=== PATIENT | female | born 1995 ===

== ENCOUNTER 2022-05-06 03:45 | Inpatient (IN) | payer BC ==
[2022-05-06] MEDS: Lactated Ringers 1,000 ML IV SCH ×3 (07:40→14:47)
[2022-05-06] MEDS ORDERED: Misoprostol 200 MCG Tab PO PRN (07:51)
[2022-05-06] MEDS ORDERED: Lidocaine 1% 50 ML MDV INJECT PRN (07:51)
[2022-05-06] MEDS ORDERED: Water For Irrigation,Sterile 1,000 ML Container IRR PRN (07:51)
[2022-05-06] MEDS ORDERED: Tranexamic Acid 1,000 MG in Sodium Chloride 0.9% 100 ML IV PRN (07:51)
[2022-05-06] MEDS ORDERED: Carboprost Tromethamine 250 MCG/1 ML Amp IM PRN (07:51)
[2022-05-06] MEDS ORDERED: Sodium Chloride 0.9% 10 ML Syringe FLUSH PRN (07:51)
[2022-05-06] MEDS ORDERED: Butorphanol 1 MG/ML SDV IVPUSH PRN (07:51)
[2022-05-06] MEDS ORDERED: Methylergonovine 0.2 MG/1 ML Amp IM PRN (07:51)
[2022-05-06] MEDS ORDERED: Sodium Chloride 0.9% 20 ML SDV IV PRN (07:51)
[2022-05-06] MEDS ORDERED: Sodium Chloride 0.9% 2.5 ML Syringe FLUSH PRN (07:51)
[2022-05-06] MEDS ORDERED: Oxytocin/0.9 % Sodium Chloride 30 UNIT/500 ML BAG IV SCH ×2 (08:00→10:45)
[2022-05-06] MEDS ORDERED: Ropivacaine/PF 400 MG/200 ML PCA ONE (08:28)
[2022-05-06] MEDS ORDERED: ePHEDrine 50 MG/ML SDV IVPUSH PRN (08:47)
[2022-05-06] MEDS ORDERED: Ropivacaine HCl/PF 400 MG in Premix Bag 1 BAG EPIDUR SCH (09:00)
[2022-05-06] MEDS ORDERED: Phenylephrine HCl In 0.9% NaCl 1 MG/10 ML Vial IVPUSH SCH (09:00)
[2022-05-06] MEDS ORDERED: Terbutaline 1 MG/ML SDV SUBCUT PRN (10:31)
[2022-05-06] MEDS ORDERED: Benzocaine/Menthol 20%-0.5% Spray 78 GM Cannister TOP PRN (18:17)
[2022-05-06] MEDS ORDERED: Aluminum Hydroxide/Magnesium Hydroxide/Simethicone XS Susp 30 ML Cup PO PRN (18:17)
[2022-05-06] MEDS ORDERED: Acetaminophen 500 MG Tab PO PRN (18:17)
[2022-05-06] MEDS ORDERED: Lanolin 100% Cream 7 GM Tube TOP PRN (18:17)
[2022-05-06] MEDS ORDERED: Ibuprofen 400 MG Tab PO PRN (18:17)
[2022-05-06] MEDS ORDERED: oxyCODONE 5 MG Tab PO PRN (18:17)
[2022-05-06] MEDS ORDERED: Bisacodyl 10 MG Supp RECTAL PRN (18:17)
[2022-05-06] MEDS: Ibuprofen 800 MG Tab PO PRN (20:42)
[2022-05-06] MEDS: Witch Hazel Medicated Pads 40/Jar TOP PRN (20:43)
[2022-05-07] MEDS: Acetaminophen 500 MG Tab PO PRN ×2 (08:06→16:06)
[2022-05-07] MEDS: Docusate Sodium 100 MG Cap PO PRN (08:06)
[2022-05-07] MEDS: Ibuprofen 800 MG Tab PO PRN (11:53)
[2022-05-08] MEDS: Acetaminophen 500 MG Tab PO PRN ×2 (02:18→09:15)
[2022-05-08] MEDS: Witch Hazel Medicated Pads 40/Jar TOP PRN (09:12)
[2022-05-08] MEDS: Docusate Sodium 100 MG Cap PO PRN (09:17)
== END 2022-05-08 12:03 | disposition home or self-care (01) | DRG 560 ==
LOC: MW.OBCHECK 03:45 → MW.OB 03:47 → MW.OBCHECK 07:51 → MW.OB 07:51 → OBSVTOIN 18:17 → MW.OB 21:00
PROVIDERS: ADMIT Obstetrics & Gynecology; ATTEND Obstetrics & Gynecology
PROC: 10E0XZZ Delivery of Products of Conception, External Approach (ICD-10-PCS; principal; 2022-05-06)
PROC: 10907ZC Drainage of Amniotic Fluid, Therapeutic from Products of Conception, Via Natural or Artificial Opening (ICD-10-PCS; 2022-05-06)
PROC: 0HQ9XZZ Repair Perineum Skin, External Approach (ICD-10-PCS; 2022-05-06)
PROC: 3E0R3BZ Introduction of Anesthetic Agent into Spinal Canal, Percutaneous Approach (ICD-10-PCS; 2022-05-06)
PROC: 00HU33Z Insertion of Infusion Device into Spinal Canal, Percutaneous Approach (ICD-10-PCS; 2022-05-06)
PROC: 10H07YZ Insertion of Other Device into Products of Conception, Via Natural or Artificial Opening (ICD-10-PCS; 2022-05-06)
DX: O48.0 Post-term pregnancy (principal); Z37.0 Single live birth; O70.0 First degree perineal laceration during delivery; Z3A.40 40 weeks gestation of pregnancy; Z20.822 Contact with and (suspected) exposure to COVID-19
CPT/HCPCS: 01967; 36415; 51702; 59025; 59409; 82803; 85014; 85018; 85027; 86592; 86850; 86900; 86901; A9270-GY; J2590; J2795; J7120; U0002